=== PATIENT | female | born 1995 | race Caucasian/White ===

== ENCOUNTER 2018-12-11 21:23 | Emergency (ER) | payer OTHER ==
[~2018-12-11] VITALS: Ht 180.3 cm; Wt 99.8 kg
[~2018-12-11 21:23] MED LIST: AZIT200SU PO; AZIT250 PO; Aspirin EC325 MG PO; CEPH500 PO; CODACE30 PO; CRUTCH2 USE; DICL250 PO; Flagyl500 MG PO; HYDACE5 PO; IBUP400 PO; IBUP600 PO; MUPI2TC TOP; NAPR550 PO; Norco 10-325 T1 EACH PO; PRED15SY PO; Vibramycin100 MG PO
== END 2018-12-11 22:44 | disposition home or self-care (01) ==
LOC: ER 21:23
DX: S93.401A Sprain of unspecified ligament of right ankle, initial encounter (principal); X50.9XXA Other and unspecified overexertion or strenuous movements or postures, initial encounter
CPT/HCPCS: 73610; 99283-25

== ENCOUNTER 2019-03-25 12:21 | Emergency (ER) | payer OTHER ==
[~2019-03-25] VITALS: Ht 175.3 cm; Wt 99.8 kg
[2019-03-25] MEDS ORDERED: Bactrim Ds Tab1 EACH PO ×2 (13:44→14:15)
[2019-03-25] MEDS ORDERED: Keflex500 MG PO ×2 (13:44→14:15)
== END 2019-03-25 14:11 | disposition home or self-care (01) ==
LOC: ER 12:21
DX: L02.414 Cutaneous abscess of left upper limb (principal); F11.90 Opioid use, unspecified, uncomplicated; L03.114 Cellulitis of left upper limb
CPT/HCPCS: 10061; 90471; 90714; 99283-25